=== PATIENT | female | born 1995 | race Hispanic/Latino ===

== ENCOUNTER 2020-10-13 11:52 | Emergency (ER) | payer OTHER ==
[2020-10-13] MEDS ORDERED: DIPHENHYDRAMINE HCL 25 MG CAPSULE ONE (12:20)
== END 2020-10-13 12:36 | disposition home or self-care (01) ==
LOC: EDH 11:52
DX: T78.49XA Other allergy, initial encounter (principal); X58.XXXA Exposure to other specified factors, initial encounter
CPT/HCPCS: 73130; 99283; Q0163